=== PATIENT | male | born 1945 | race Caucasian/White ===

== ENCOUNTER → 2016-10-10 | Outpatient (CLI) | payer OTHER, MEDICARE | LOC: BHCLAF 10:00 | PROVIDERS: ATTEND Internal Medicine Cardiovascular Disease | DX: I34.9 Nonrheumatic mitral valve disorder, unspecified (principal); R94.31 Abnormal electrocardiogram [ECG] [EKG]; R53.83 Other fatigue | CPT/HCPCS: 93306-PO ==

== ENCOUNTER → 2016-12-09 | Outpatient (CLI) | payer OTHER, MEDICARE | LOC: BHFA 11:30 | PROVIDERS: ATTEND Internal Medicine Cardiovascular Disease | DX: I34.0 Nonrheumatic mitral (valve) insufficiency (principal); I05.0 Rheumatic mitral stenosis; I35.0 Nonrheumatic aortic (valve) stenosis; R06.00 Dyspnea, unspecified ==

== ENCOUNTER → 2017-01-19 | Outpatient (CLI) | payer OTHER, MEDICARE | LOC: FIMAGING 08:33 | PROVIDERS: ATTEND Internal Medicine | DX: K22.5 Diverticulum of esophagus, acquired (principal); K44.9 Diaphragmatic hernia without obstruction or gangrene ==

== ENCOUNTER → 2017-12-01 | Outpatient (CLI) | payer OTHER, MEDICARE ==
[~2017-12-01] MED LIST: IOPAMIDOL (ISOVUE-300) 100 ML BTL ONE
== END ==
LOC: CIMAGING 10:17
PROVIDERS: ATTEND Specialist
DX: N20.0 Calculus of kidney (principal); N28.9 Disorder of kidney and ureter, unspecified; K44.9 Diaphragmatic hernia without obstruction or gangrene; Z90.49 Acquired absence of other specified parts of digestive tract
CPT/HCPCS: 74178; Q9967; 82565-PO

== ENCOUNTER → 2017-12-19 | Outpatient (CLI) | payer OTHER, MEDICARE | LOC: BHFA 14:45 | PROVIDERS: ATTEND Internal Medicine Cardiovascular Disease | DX: I35.1 Nonrheumatic aortic (valve) insufficiency (principal) ==

== ENCOUNTER 2018-06-04 12:51 | Observation (INO) | payer OTHER, MEDICARE ==
--- NOTE | 2018-06-04 13:13 | EDPHY ---
H & P Stated Complaint: lightheaded,nausea.Denies pain or tightness Time Seen by Provider: 06/04/18 13:04 HPI/ROS: CHIEF COMPLAINT: Chest tightness HISTORY OF PRESENT ILLNESS: The patient is a 73-year-old man who comes to the emergency department complaining of mild brief chest tightness, lightheaded and nausea. He reports that he feels like every 30 min or so he feels like he breathes some "foul air, like a chemical or something" and this causes him to have slight nausea, lightheadedness and chest tightness. The symptoms last for about 4-5 min and then resolved spontaneously. The symptoms began early this morning and his has been trying to get him to come to the ER but he was resistant. He has a history of mitral valve regurgitation surgically repaired in 2004. This surgery was complicated with a pulmonary embolism. On echocardiogram last year revealed a mild stenosis. He also had a negative stress test 2 years ago. He has never had any coronary artery disease. He also wore a Holter monitor last month to evaluate for arrhythmia is and this was negative. He denies any recent fevers or infections. His outpatient physical therapist is Dr. Gutierrez. Here in the ER he feels asymptomatic. When he has the tightness it does not radiate. No diaphoresis. Not worsened by exertion. Severity: Moderate Modifying factors: Resolved with time REVIEW OF SYSTEMS: Constitutional: denies: chills, fever, recent illness, recent injury EENTM: denies: blurred vision, double vision, nose congestion Respiratory: denies: cough, shortness of breath Cardiac: See HPI Gastrointestinal/Abdominal: denies: abdominal pain, diarrhea, nausea, vomiting, blood streaked stools Genitourinary: denies: dysuria, frequency, hematuria, pain Musculoskeletal: denies: joint pain, muscle pain Skin: denies: lesions, rash, jaundice, bruising Neurological: denies: headache, numbness, paresthesia, tingling, dizziness, weakness Hematologic/Lymphatic: denies: blood clots, easy bleeding, easy bruising Immunologic/allergic: denies: HIV/AIDS, transplant 10 systems reviewed and negative except as noted EXAM: GENERAL: Well-appearing, well-nourished and in no acute distress. HEAD: Atraumatic, normocephalic. EYES: Pupils equal round and reactive to light, extraocular movements intact, sclera anicteric, conjunctiva are normal. ENT: TMs normal, nares patent, oropharynx clear without exudates. Moist mucous membranes. NECK: Normal range of motion, supple without lymphadenopathy or JVD. LUNGS: Breath sounds clear to auscultation bilaterally and equal. No wheezes rales or rhonchi. HEART: Regular rate and rhythm without murmurs, rubs or gallops. ABDOMEN: Soft, nontender, normoactive bowel sounds. No guarding, no rebound. No masses appreciated. BACK: No CVA tenderness, no spinal tenderness, step-offs or deformities EXTREMITIES: Normal range of motion, no pitting or edema. No clubbing or cyanosis. NEUROLOGICAL: Cranial nerves II through XII grossly intact. Normal speech, normal gait. 5/5 strength, normal movement in all extremities, normal sensation , normal reflexes PSYCH: Normal mood, normal affect. SKIN: Warm, dry, normal turgor, no visible rashes or lesions. Source: Patient, Family Exam Limitations: No limitations - Personal History Current Tetanus/Diphtheria Vaccine: Unsure Current Tetanus Diphtheria and Acellular Pertussis (TDAP): Unsure - Medical/Surgical History Hx Asthma: No Hx Chronic Respiratory Disease: No Hx Diabetes: No Hx Cardiac Disease: Yes Hx Renal Disease: No Hx Cirrhosis: No Hx Alcoholism: No Hx HIV/AIDS: No Other PMH: mitral valve repair, mitral valve stenosis, gall bladder, kidney stones,left Shoulder surgery ,inguinal hernia repair, prostate cancer - Family History Significant Family History: No pertinent family hx - Social History Smoking Status: Never smoked Alcohol Use: Sober Drug Use: None Constitutional: Initial Vital Signs Heart Rate 64 06/04/18 12:55 Respiratory Rate 20 06/04/18 12:55 Blood Pressure 148/77 H 06/04/18 12:55 O2 Sat (%) 96 06/04/18 12:55 O2 Delivery Mode Room Air Allergies/Adverse Reactions: ceftriaxone sodium [From Rocephin] Allergy (Verified 06/04/18 13:00) Home Medications: Medication Instructions Recorded Aspirin [Aspirin 81mg (*)] 81 mg PO HS 06/04/18 Cholecalciferol Vit D3 [Vitamin D3 2,000 units PO DAILY 06/04/18 2000 units tab (OTC)] Esomeprazole Magnesium [Nexium] 20 mg PO DAILY 06/04/18 Ezetimibe [Zetia 10 MG (*)] 10 mg PO HS 06/04/18 Fenofibrate [Tricor 145 mg (*)] 145 mg PO HS 06/04/18 Herbals/Supplements -Info Only 1 ea PO DAILY 06/04/18 Levothyroxine [Synthroid 50 mcg 50 mcg PO DAILY06 06/04/18 (*)] Multivitamins [Multivitamin (*)] 1 each PO DAILY 06/04/18 Tamsulosin HCl [Flomax 0.4 MG (*)] 0.4 mg PO HS 06/04/18 Famotidine [Pepcid 20 MG (*)] 20 mg PO BID #40 tab 06/05/18 Medical Decision Making - Diagnostics EKG Interpretation: An EKG obtained and was read and documented in trace view. Please see trace view for full reading and report. Sinus are ectopic atrial rhythm, no acute ischemic changes Imaging: Discussed imaging studies w/ callisthenics instructor Radiologist ED Course/Re-evaluation: The patient's lab work and imaging is reassuring. He does have occasional premature atrial contractions on the monitor. 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 He continues to have intermittent chest tightness and lightheadedness and nausea. I recommended admission for further testing and he was reluctant but his urged him to stay. I have paged the cardiology and hospitalist teams. 2:[address] Higgins who will admit. Will transfer via EMS. 3:15 p.m. I spoke with Dr. Flores who agrees with plan. Differential Diagnosis: Partial list of the Differential diagnosis considered include but were not limited to; acute coronary disease, arrhythmia, PE, gastroenteritis and although unlikely based on the history and physical exam, I also considered pneumonia, dissection. - Data Points Medications Given: Discontinued Medications Acetaminophen (Tylenol) 650 mg PO Q6HRS PRN PRN Reason: Pain, Mild/Fever, Can Take PO Stop: 12/02/18 06:03 Last Admin: 06/05/18 06:11 Dose: 650 mg Aspirin (Aspirin) 81 mg PO HS [facility] Stop: 12/01/18 20:59 Last Admin: 06/04/18 20:55 Dose: 81 mg Cholecalciferol (Vitamin D) 2,000 units PO DAILY [facility] Stop: 12/02/18 08:59 Last Admin: 06/05/18 08:12 Dose: 2,000 units Ezetimibe (Zetia) 10 mg PO HS [facility] Stop: 12/01/18 20:59 Last Admin: 06/04/18 20:55 Dose: 10 mg Fenofibrate (Tricor) 145 mg PO HS [facility] Stop: 12/01/18 20:59 Last Admin: 06/04/18 20:55 Dose: 145 mg Famotidine/Sodium Chloride (Pepcid 20 Mg (Premix)) 50 mls @ 200 mls/hr IV Q12HRS [facility] Stop: 12/01/18 20:59 Last Admin: 06/05/18 08:12 Dose: 50 mls Levothyroxine Sodium (Synthroid) 50 mcg PO DAILY06 [facility] Stop: 12/02/18 05:59 Last Admin: 06/05/18 05:48 Dose: 50 mcg Multivitamins (Tab-A-Yehuda) 1 each PO DAILY [facility] Stop: 12/02/18 08:59 Last Admin: 06/05/18 08:12 Dose: 1 each Tamsulosin HCl (Flomax) 0.4 mg PO [facility] Stop: 12/01/18 20:59 Last Admin: 06/04/18 20:55 Dose: 0.4 mg Point of Care Test Results: CBC CBC Collection Date 06/04/18 CBC Collection Time 12:58 WBC 6.7 RBC 5.41 HGB 16.5 HCT 47.9 PLT 235 Neut # 4.7 Neut 70.2 LYMPH # 1.1 LYMPH 16.4 Other WBC # 0.9 Other WBC 13.4 MCV 88.5 Chemistry 06/04/18 06/04/18 13:16 13:14 POC Sodium 141 mEq/L mEq/L (135-145) POC Potassium 3.5 mEq/L mEq/L (3.3-5.0) POC Chloride 104.0 mEq/L mEq/L (97-110) POC Total CO2 26 mEq/L mEq/L (22-31) POC BUN 16 mg/dL mg/dL (7-23) POC Creatinine 1.2 mg/dL mg/dL (0.7-1.3) POC Glucose 91 mg/dL mg/dL (70-100) POC Calcium 9.5 mg/dL mg/dL (8.5-10.4) POC Troponin I 0.00 ng/mL ng/mL (0.00-0.08) D-Dimer D-Dimer Collection Date 06/04/18 D-Dimer Collection Time 12:58 D-Dimer (ng/ml) 162 Departure - Departure Disposition: [facility] Inpatient Acute Clinical Impression: Chest pain Qualifiers: Chest pain type: unspecified Qualified Code(s): R07.9 - Chest pain, unspecified Condition: Fair
--- NOTE | 2018-06-04 13:31 | CPEKG ---
Test Reason : OPEN Blood Pressure : / mmHG Vent. Rate : 064 BPM Atrial Rate : 064 BPM P-R Int : 189 ms QRS Dur : 104 ms QT Int : 434 ms P-R-T Axes : -56 049 003 degrees QTc Int : 448 ms Sinus or ectopic atrial rhythm Confirmed by Jenaro Osborne ([id number]) on 06/04/2018 1:31:05 PM Referred By: Confirmed By:Jenaro Osborne
--- NOTE | 2018-06-04 17:39 | PDGENHP ---
History and Physical - History of Present Illness 73 y/o male presents from urgent care reporting chest tightness and nausea. He reports this morning in his house, he smelled "a foul chemical smell" which caused him to be nauseous. Therefore he took multiple deep breaths and felt minor (1 out of 10) chest tightness. This happened approximately every 30 minutes and lasted for about 45 minutes each time. His did not smell this and she does not have sinus issues. Since arriving at the hospital, he has not experienced this sensation of smell, chest tightness, and nausea. He is being admitted for observation. Past Medical/Surgical History 1. Hyperlipidemia 2. Hypertension 3. Mitral valve stenosis with valve replacement in 2004 4. Aortic valve stenosis 5. GERD 6. Prostate cancer 7. Transient global amnesia 8. Left should repair 9. Inguinal hernia repair 10. Hypothyroidism Social 1. Denies tobacco or illicit drug use. Occasionally drinks alcohol. 2. Exercises by walking and playing golf. 3. 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 Vital Signs 109/67 67 HR 17 Respirations 36.5c 95% RA History Information - Allergies/Home Medication List Allergies/Adverse Reactions: ceftriaxone sodium [From Rocephin] Allergy (Verified 06/04/18 13:00) Home Medications: Aspirin [Aspirin 81mg (*)] 81 mg PO HS 06/04/18 [Last Taken 06/03/18] Cholecalciferol Vit D3 [Vitamin D3 2000 units tab (OTC)] 2,000 units PO DAILY [Last Taken 06/04/18] Esomeprazole Magnesium [Nexium] 20 mg PO DAILY 06/04/18 [Last Taken 06/04/18] Ezetimibe [Zetia 10 MG (*)] 10 mg PO HS 06/04/18 [Last Taken 06/03/18] Fenofibrate [Tricor 145 mg (*)] 145 mg PO HS 06/04/18 [Last Taken 06/03/18] Herbals/Supplements -Info Only 1 ea PO DAILY 06/04/18 [Last Taken 06/04/18] Levothyroxine [Synthroid 50 mcg (*)] 50 mcg PO DAILY06 06/04/18 [Last Taken ] Multivitamins [Multivitamin (*)] 1 each PO DAILY 06/04/18 [Last Taken 06/04/18] Tamsulosin HCl [Flomax 0.4 MG (*)] 0.4 mg PO HS 06/04/18 [Last Taken 06/03/18] I have personally reviewed and updated: family history, medical history, social history, surgical history Past Medical History: See HPI list - Past Medical History cataracts - Surgical History Additional surgical history: See HPI list - Family History Additional family history: DM II, CAD, CHF - Social History Smoking Status: Never smoked Alcohol Use: Rarely Drug Use: None Review of Systems Review of Systems: ROS: 10pt was reviewed & negative except for what was stated in HPI & below Constitutional: Reports: no symptoms EENMT: Reports: other (Endorses "chemical" smell in his house) Cardiac: Reports: chest pain, lightheadedness Respiratory: Reports: shortness of breath Gastrointestinal: Reports: nausea Genitourinary: Reports: no symptoms Muscolosketal: Reports: no symptoms Skin: Reports: no symptoms Neurological: Reports: no symptoms Hematologic/Lymphatic: Reports: no symptoms Immunologic/Allergy: Reports: other (See allergy list) Physical Exam Physical Exam: Lab data and imaging were reviewed Temp Pulse Resp BP Pulse Ox 36.5 C 67 17 109/67 95 06/04/18 16:40 06/04/18 16:40 06/04/18 16:40 06/04/18 16:40 06/04/18 16:40 Constitutional: no apparent distress, appears nourished, not in pain Eyes: PERRL, anicteric sclera, EOMI Ears, Nose, Mouth, Throat: moist mucous membranes, hearing normal, ears appear normal, no oral mucosal ulcers Cardiovascular: regular rate and rhythym, no murmur, rub, or gallop, No edema Peripheral Pulses: 2+: dorsalis-pedis (R) (Radial 2+), dorsalis-pedis (L) ( Radial 2+) Respiratory: no respiratory distress, no rales or rhonchi, clear to auscultation Gastrointestinal: normoactive bowel sounds, soft, non-tender abdomen, no palpable masses Genitourinary: no bladder fullness, no bladder tenderness Skin: warm, normal color, no rashes or abrasions, no fluctuance, no induration, No mottled Musculoskeletal: full muscle strength, no muscle tenderness, normal joint ROM, no joint effusions Neurologic: AAOx3, sensation intact bilaterally, CN II-XII Intact Psychiatric: interacting appropriately, not anxious, not encephalopathic, thought process linear Lymph, Heme, Immunologic: no cervical LAD, no supraclavicular LAD Lab Data & Imaging Review 06/04/18 18:27 POC Sodium 141 mEq/L (135-145) 06/04/18 13:14 POC Potassium 3.5 mEq/L (3.3-5.0) 06/04/18 13:14 POC Chloride 104.0 mEq/L (97-110) 06/04/18 13:14 POC Total CO2 26 mEq/L (22-31) 06/04/18 13:14 POC BUN 16 mg/dL (7-23) 06/04/18 13:14 POC Creatinine 1.2 mg/dL (0.7-1.3) 06/04/18 13:14 POC Glucose 91 mg/dL (70-100) 06/04/18 13:14 POC Calcium 9.5 mg/dL (8.5-10.4) 06/04/18 13:14 POC Troponin I 0.00 ng/mL (0.00-0.08) 06/04/18 13:16 Assessment & Plan Plan: 73 y/o male who presents with nausea and chest tightness after smelling a "foul chemical smell" within his household. He has not experienced this before. 1. Chest pain: heart score is 5. -Cardiology has been consulted and is aware. Dr. Soler will perform ECHO tomorrow. If negative for issues, he will need to f/u outpatient with cards. Stress test unlikely considering the pt's unusual presentation and low likelihood of it representing ACS. However he does have a cardiac history. -Cycle trops -Cycle EKG -Cont tele monitoring 2. Nausea -Anti-emetics PRN 3. Hyperlipidemia -Continue tricor and zetia 4. Hypothyroidism -May continue levothyroxine 5. GERD: may use IV pepcid. Holding home PO medication right now. Diet: Cardiac VTE ppx: SCDs Code: Full Dispo: Admit to obs
--- NOTE | 2018-06-04 18:28 | GCON ---
CARDIOLOGY CONSULT DATE OF CONSULTATION: 06/04/2018 CHIEF COMPLAINT: Nausea, abdominal discomfort, lightheadedness. HISTORY OF PRESENT ILLNESS: This is a 73-year-old male with history of mitral valve repair. He sees Dr. Gutierrez in our office regularly. He has been indicating that he has been doing quite well, other than having symptoms of nausea, lightheadedness, and discomfort around the abdominal chest area over the last few days. He did come to the emergency room for further evaluation at [facility]. His ECG upon a rrival showed normal sinus rhythm with no acute ST changes. First set of troponins are negative. He is currently asymptomatic and indicates that his symptoms have improved over the last 3 hours, curre ntly resting quietly. Blood pressure and heart rate stable. PAST MEDICAL HISTORY: Significant for mitral valve repair in 2004, history of GERD, hyperlipidemia, hypothyroidism. HOME MEDICATIONS: Consist of aspirin, Zetia, fish oil, Synthroid, multivitamin, Nexium, Tricor. ALLERGIES: Rocephin. FAMILY HISTORY: Significant for diabetes, coronary artery disease. SOCIAL HISTORY: No smoking. No alcohol. REVIEW OF SYSTEMS: The patient currently denies any visual changes. No headache. No ear pain. No neck pain. No throat pain. No chest pain. No back pain. No shoulder pain. No shortness of breath . No current abdominal discomfort. No lower extremity pain. No neurologic deficits. PHYSICAL EXAMINATION: VITAL SIGNS: Afebrile 96, blood pressure currently 136/70, heart rate 72, res piratory rate 12 , sat 95% on room air. HEENT: Pupils are equal, round, and reactive to light and a ccommodation. Extraocular movements intact. . CARDIOVASCULAR: Regular rate and rhythm S1, S2. BHARTI NGS: Clear to auscultation bilaterally. ABDOMEN: Soft, nontender. No guarding. EXTREMITIES: No clubbing, no cyanosis, no edema. NEUROLOGIC: He is alert x3. LABORATORY VALUES: Currently show sodium 141, potassium 3.5, creatinine 1.2. Troponins are 0.0. TS H is currently pending. ASSESSMENT/PLAN: Nausea/lightheadedness/abdominal pain. At this time, it is unclear of the exact et iology of the patient's current complaints, although he is currently asymptomatic. We will trend tro ponins. We will also start the patient on Pepcid 20 mg intravenous b.i.d., in addition to his home N exium in the case that this is breakthrough gastroesophageal reflux disease that the patient is suffe ring from. Unlikely at this point, the patient is suffering from an acute coronary syndrome. We renita monroe check an echocardiogram in the morning. If clinically stable and improving, anticipate discharge w ithin 24 hours. /[id number]/MODL
--- NOTE | 2018-06-04 19:22 | HOSPPROG ---
Hospitalist Progress Note Assessment/Plan: patient seen/examined/discussed w LEE ANN welsh. chemical smell followed by atypical cp w neg initial eval. only one day of smell, no clear source. non focal neuro exam/. 1. outpt stresss 2. seen by cardiology 3. mri brain if persistent olfactory hallucinations Objective: Vital Signs Temp Pulse Resp BP Pulse Ox 36.5 C 71 20 117/72 98 06/04/18 17:54 06/04/18 17:54 06/04/18 17:54 06/04/18 17:54 06/04/18 17:54 Laboratory Results 06/04/18 18:27 06/03/18 06/04/18 06/05/18 05:59 05:59 05:59 Intake Total 250 Balance 250 ICD10 Worksheet Patient Problems: Problems Problem Status Onset Chest pain Acute
[2018-06-04] MEDS: FAMOTIDINE 20 MG/NACL 50 ML IV SCH (20:55)
[2018-06-04] MEDS ORDERED: EZETIMIBE 10 MG TAB PO SCH (21:00)
[2018-06-04] MEDS ORDERED: TAMSULOSIN HCL 0.4 MG CAP PO SCH (21:00)
[2018-06-04] MEDS ORDERED: ASPIRIN 81 MG CHEWABLE TAB PO SCH (21:00)
[2018-06-04] MEDS ORDERED: FENOFIBRATE 145 MG TAB PO SCH (21:00)
[2018-06-05] MEDS ORDERED: LEVOTHYROXINE 50 MCG TAB PO SCH (06:00)
[2018-06-05] MEDS ORDERED: ACETAMINOPHEN 325 MG TAB PO PRN (06:04)
--- NOTE | 2018-06-05 07:54 | PDCARPN ---
Cardiology Progress Note Chief Complaint: nausea/light-headedness Assessment/Plan: Assessment: nausea abd pain light-headedness Plan: 06/05/18 07:52 patient feels back to baseline no further symptoms after pepcid suspect underlying GI issue trop - x 3 sets patient has known MS/MR from echo from 12/20, but no clinical signs of on physical exam of worsening valvular heart disease--can hold off on repeat echo OK to d/c from CV standpoint, will f/u next week in office Subjective: doing well Reviewed/Discussed With: multidisciplinary team Time Spent with Patient: greater than 25 minutes Time Spent with Patient: Greater than 25 minutes spent on this patients care, greater than 50% of time spent counseling, educating, and coordinating care regarding the above mentioned plan. Objective: Vital Signs (8 Hrs) Temp Pulse Resp BP Pulse Ox 06/05/18 03:08 36.7 C 76 22 H 121/69 H 94 Intake/Output (24 Hrs) 06/04/18 06/05/18 06/06/18 05:59 05:59 05:59 Intake Total 710 Balance 710 Intake: Oral (ml) 650 IV Infused (ml) 60 Famotidine 20 mg/NaCl 50 60 ml @ 200 mls/hr IV Q12HRS [facility] Rx#:[id number] Other: Weight 65.3 kg Number of Voids 1 Toilet 3 Number of Stools Toilet 1 Result Diagrams: 06/04/18 18:27 Cardiac Labs: Cardiac Lab Results (72 Hrs) 06/05/18 06/04/18 03:08 18:27 Troponin I < 0.012 < 0.012 - Physical Exam Constitutional: healthy appearing Eyes: PERRL Ears, Nose, Mouth, Throat: moist mucous membranes Cardiovascular: regular rate and rhythm Peripheral Pulses: 1+: femoral (R), femoral (L) Respiratory: clear to auscultate bilat Gastrointestinal: normoactive bowel sounds Genitourinary: no suprapubic tenderness Skin: no rashes Musculoskeletal: no muscular tenderness Neurologic: AAOx3 Psychiatric: cooperative ICD10 Worksheet Patient Problems: Problems Problem Status Onset Chest pain Acute
[2018-06-05 07:59] VITALS: BP 124/81
[2018-06-05] MEDS: FAMOTIDINE 20 MG/NACL 50 ML IV SCH (08:12)
[2018-06-05] MEDS ORDERED: MULTIVITAMINS 1 EACH TAB PO SCH (09:00)
[2018-06-05] MEDS ORDERED: CHOLECALCIFEROL VIT D3 2,000 UNITS TAB/CAP PO SCH (09:00)
[2018-06-05] MEDS ORDERED: Herbals/Supplements -Info Only PO SCH (09:00)
--- NOTE | 2018-06-05 10:58 | PDDCSUM ---
Discharge Summary Discharge Summary: Date of Admission: 06/04/2018 Date of Discharge: 06/05/2018 Consults: Cardiology Followup: PCP, Cardiology Hospital Course: 73 y/o male who presents with nausea and chest tightness after smelling a "foul chemical smell" within his household. 1. Chest pain: heart score is 5. -Cardiology consulted on admission, suspect underlying GI issue, Troponin negative x3, EKG with no acute ischemic changes, patient has known MS/MR recent TTE 12/2017, no clinical signs of worsening valvular disease on physical exam holding off on repeat TTE, will f/u with cardiology in next week - 2. Nausea -Anti-emetics PRN 3. Hyperlipidemia -Continue tricor and zetia 4. Hypothyroidism -May continue levothyroxine 5. GERD: Transitioned IV pepcid to PO PRN, continue home Nexium Time spent on discharge was >35 minutes with >50% of time spent on patient education and counseling.
[2018-06-05] MEDS ORDERED: FAMOTIDINE 20 MG TAB PO SCH (21:00)
== END 2018-06-05 12:32 | disposition home or self-care (01) ==
LOC: CED 12:51 → CEDHOLD 14:46 → F2W 17:18
PROVIDERS: ADMIT Internal Medicine; ATTEND Internal Medicine
DX: R07.9 Chest pain, unspecified (principal); R11.0 Nausea; E78.5 Hyperlipidemia, unspecified; E03.9 Hypothyroidism, unspecified; K21.9 Gastro-esophageal reflux disease without esophagitis; I10 Essential (primary) hypertension; I35.0 Nonrheumatic aortic (valve) stenosis; Z79.82 Long term (current) use of aspirin; Z86.718 Personal history of other venous thrombosis and embolism; Z87.442 Personal history of urinary calculi; Z85.46 Personal history of malignant neoplasm of prostate; Z82.49 Family history of ischemic heart disease and other diseases of the circulatory system; Z95.2 Presence of prosthetic heart valve
CPT/HCPCS: 71046; 93005; 96374; 96376; G0378; 80048-PO; 84484-PO